=== PATIENT | female | born 1945 | race Caucasian/White ===

== ENCOUNTER 2016-09-20 09:00 | Day surgery (SDC) | payer OTHER ==
[~2016-09-20] VITALS: Ht 165.1 cm; Wt 104.3 kg
[~2016-09-20 09:00] MED LIST: ALLERGY10 M1 PO; AMLODIPINE-BEN1 EAC3 PO; ATORVASTATIN CA10 MG PO; ELIQUIS5 MG PO; ESOMEPRAZOLE MA40 MG PO; GAS RELIEF125 MG PO; GLUCOSAMINE CO1 EAC1 PO; MELOXICAM15 MG PO; POTASSIUM CHLO20 ME1 PO; PROPRANOLOL HC120 MG PO; SENNA8.6 MG PO
[2016-09-22] MEDS ORDERED: ASPIR-LOW81 MG PO (10:48)
== END 2016-09-20 11:43 | disposition home or self-care (01) ==
LOC: CATH 09:00
PROC: 5A2204Z Restoration of Cardiac Rhythm, Single (ICD-10-PCS; principal; 2016-09-20)
DX: I48.91 Unspecified atrial fibrillation (principal); I10 Essential (primary) hypertension; G47.33 Obstructive sleep apnea (adult) (pediatric); E66.9 Obesity, unspecified
CPT/HCPCS: 93005; J2250

== ENCOUNTER 2016-09-26 08:12 | Day surgery (SDC) | payer OTHER ==
[~2016-09-26] VITALS: Ht 165.1 cm; Wt 104.3 kg
[~2016-09-26 08:12] MED LIST changes: +ASPIR-LOW81 MG PO
== END 2016-09-26 17:45 | disposition home or self-care (01) ==
LOC: CATH 08:12
DX: R07.9 Chest pain, unspecified (principal); R94.39 Abnormal result of other cardiovascular function study; I48.1 Persistent atrial fibrillation; Z79.01 Long term (current) use of anticoagulants; E78.5 Hyperlipidemia, unspecified; I10 Essential (primary) hypertension; E66.9 Obesity, unspecified
CPT/HCPCS: C1769; C1887; J1644; J2250; J3010

== ENCOUNTER 2016-10-17 09:04 | Day surgery (SDC) | payer OTHER ==
[~2016-10-17] VITALS: Ht 165.1 cm; Wt 104.0 kg
[2016-10-17 09:56] LABS: POINT-OF-CARE METER ID UU13113696
== END 2016-10-17 11:54 | disposition home or self-care (01) ==
LOC: CATH 09:04
PROVIDERS: Internal Medicine Cardiovascular Disease
PROC: 5A2204Z Restoration of Cardiac Rhythm, Single (ICD-10-PCS; principal; 2016-10-17)
DX: I48.91 Unspecified atrial fibrillation (principal); K21.9 Gastro-esophageal reflux disease without esophagitis; R73.9 Hyperglycemia, unspecified; E78.5 Hyperlipidemia, unspecified; I10 Essential (primary) hypertension; G47.33 Obstructive sleep apnea (adult) (pediatric); R53.83 Other fatigue; Z82.49 Family history of ischemic heart disease and other diseases of the circulatory system; Z82.0 Family history of epilepsy and other diseases of the nervous system; Z80.42 Family history of malignant neoplasm of prostate; Z80.3 Family history of malignant neoplasm of breast; Z83.3 Family history of diabetes mellitus; Z79.01 Long term (current) use of anticoagulants
CPT/HCPCS: 82948; 93005

== ENCOUNTER 2016-12-10 05:30 | Emergency (ER) | payer OTHER ==
[~2016-12-10] VITALS: Ht 167.6 cm; Wt 106.6 kg
[2016-12-10 06:32] LABS: MCH 29.7 PG (29.0-34.0); MCHC 32.9 G/DL (30.0-36.0); MCV 90.3 FL (83-99); MEAN PLAT.VOLUME 10.3 uM^3 (9.5-12.4); PLATELET COUNT 247 K/uL (156-360); RBC DIS.WIDTH-SD 46.3 % (39-53); RED BLOOD COUNT 4.54 M/uL (3.80-5.20); WHITE BLOOD COUNT 7.1 K/uL (4.1-10.2)
[2016-12-10 06:45] LABS: ADD MIUA? NO; BILIRUBIN NEGATIVE; BLOOD NEGATIVE; COLOR COLORLESS ((YELLOW)); GLUCOSE (STRIP) NEGATIVE; KETONES NEGATIVE; LEUKOCYTES NEGATIVE; NITRITE NEGATIVE; PROTEIN (STRIP) NEGATIVE; SPECIFIC GRAVITY 1.009 (1.000-1.030); UCUL ADDED? NO; UROBILINOGEN 0.2 MG/DL (0.2-1.0)
[2016-12-10 07:00] LABS: ANION GAP 8 MEQ/L (2-14); CHLORIDE 106 MEQ/L (99-109); POTASSIUM 3.2 MEQ/L (3.7-5.4); SAMPLE HEMOLYSIS CHECK 0; SAMPLE ICTERIC CHECK 0; SAMPLE LIPEMIA CHECK 0; SODIUM 143 MEQ/L (136-147); TOTAL BILIRUBIN 0.7 MG/DL (0.0-1.0)
[2016-12-10 07:05] LABS: ALKALINE PHOSPHATASE 78 IU/L (3-129); GFR ESTIMATE (CALCULATED) > 59 mL/min/; GLUCOSE 138 mg/dL (70-99); UREA NITROGEN (BUN) 11 mg/dL (9-23)
[2016-12-10] MEDS ORDERED: ANTIVERT25 MG PO (10:14)
[2016-12-10 11:05] VITALS: BP 123/65
== END 2016-12-10 11:06 | disposition home or self-care (01) ==
LOC: EME → EDBD 05:30 → EME 11:06
PROVIDERS: Emergency Medicine
DX: R42 Dizziness and giddiness (principal); I10 Essential (primary) hypertension; K21.9 Gastro-esophageal reflux disease without esophagitis; I48.91 Unspecified atrial fibrillation; G43.909 Migraine, unspecified, not intractable, without status migrainosus; M79.7 Fibromyalgia; R51 Headache
CPT/HCPCS: 70450; 80053; 81003; 85027; 93005; 99281; 99285